=== PATIENT | female | born 1950 | race Native Hawaiian/Other Pacific Islander ===

== ENCOUNTER 2017-10-25 19:30 | Emergency (ER) | payer OTHER, MEDICARE ==
[~2017-10-25] VITALS: Ht 165.1 cm; Wt 78.5 kg
[2017-10-25 19:37] VITALS: TEMP 99.3
[2017-10-25 20:29] VITALS: BP 125/66
== END 2017-10-25 20:30 | disposition home or self-care (01) ==
LOC: ED 19:30
DX: R13.19 Other dysphagia (principal)
CPT/HCPCS: 96372; 99282; J1610

== ENCOUNTER 2021-12-22 10:52 | Outpatient (CLI) | payer OTHER, MEDICARE | END 2021-12-22 18:58 | disposition home or self-care (01) | LOC: RAD 10:52 | PROVIDERS: ATTEND Internal Medicine | DX: Z01.818 Encounter for other preprocedural examination (principal) ==

== ENCOUNTER 2022-04-25 12:57 | Outpatient (CLI) | payer OTHER, MEDICARE | END 2022-04-25 19:08 | disposition home or self-care (01) | LOC: RAD 12:57 | PROVIDERS: ATTEND Orthopaedic Surgery | DX: M25.561 Pain in right knee (principal) ==